=== PATIENT | male | born 1940 | race Caucasian/White ===

== ENCOUNTER 2024-02-02 15:46 | Outpatient (CLI) | payer MEDICARE, OTHER | END 2024-02-02 23:59 | disposition critical access hospital (66) | LOC: EMS 15:46 | DX: R42 Dizziness and giddiness (principal); R11.0 Nausea; R61 Generalized hyperhidrosis | CPT/HCPCS: A0425; A0427 ==

== ENCOUNTER 2024-02-02 16:03 | Emergency (ER) | payer MEDICARE, OTHER ==
--- NOTE | 2024-02-02 16:25 | ED Physician Documentation ---
History of Present Illness - Stated complaint Stated Complaint: NAUSEA - Chief complaint Chief Complaint: Neuro - History obtained from History obtained from: Patient - Additonal information Additional information: Patient is an 84 yo M presenting to the ED with symptoms of dizziness. Symptoms started shortly after leaning over outside while doing work and then standing up suddenly. Patient reports persistent symptoms at this time with any movment. He notes he was able to walk shortly after this occured. No LOC or truama. He denies any vomiting but does report some nausea with these symptoms. He denies this ever happening before. He notes he was feeling fine this morning. Patient denies any new medications or changing any medications recently. He denies any headaches or neck pain. PD PAST MEDICAL HISTORY - Past Medical History Past Medical History: Yes Cardiovascular: Hypertension - Past Surgical History Past Surgical History: Yes General: Other - Allergies Allergies/Adverse Reactions: Allergies Allergy/AdvReac Type Severity Reaction Status Date / Time No Known Drug Allergies Allergy Verified 02/02/24 16:09 - Social History Does the pt smoke?: No Smoking Status: Never smoker Does the pt drink ETOH?: No Does the pt have substance abuse?: No - Immunizations Immunizations are current?: Yes PD ED PE NORMAL - Vitals Vital signs reviewed: Yes - General General: Alert and oriented X 3 - HEENT HEENT: Atraumatic - Neck Neck: Supple, no meningeal sign - Cardiac Cardiac: RRR, No murmur, No rub, Strong equal pulses - Respiratory Respiratory: No respiratory distress, Clear bilaterally - Abdomen Abdomen: Normal bowel sounds, Soft - Derm Derm: Normal color - Neuro Neuro: Alert and oriented X 3, writing manager 2-12 intact, Other (Finger to nose test intact. Strength intact in upper and lower extremities. Stable gait on ambulation. Negative Romberg anastacio) Results - Vitals Vitals: Oxygen O2 Source Room air - Labs Labs: Laboratory Tests 02/02/24 02/02/24 02/02/24 16:34 16:34 16:34 WBC 7.9 RBC 4.74 Hgb 14.3 Hct 42.6 MCV 89.9 MCH 30.2 MCHC 33.6 RDW 13.0 Plt Count 133 MPV 10.2 Neut # (Auto) 6.2 Lymph # (Auto) 1.0 L [place] # (Auto) 0.7 Eos # (Auto) 0.1 Baso # (Auto) 0.0 Absolute Nucleated RBC 0.00 Nucleated RBC % 0.0 Sodium 136 Potassium 4.8 H Chloride 100 L Carbon Dioxide 28 Anion Gap 8.0 BUN 15 Creatinine 1.0 Estimated GFR (MDRD) 72 L Glucose 135 H Calcium 9.8 Total Bilirubin 1.1 H AST 15 ALT 14 Alkaline Phosphatase 66 B-Natriuretic Peptide 124 H Total Protein 7.1 Albumin 4.4 Globulin 2.7 Albumin/Globulin Ratio 1.6 Lipase 15 Ethyl Alcohol 02/02/24 16:34 WBC RBC Hgb Hct MCV MCH MCHC RDW Plt Count MPV Neut # (Auto) Lymph # (Auto) [place] # (Auto) Eos # (Auto) Baso # (Auto) Absolute Nucleated RBC Nucleated RBC % Sodium Potassium Chloride Carbon Dioxide Anion Gap BUN Creatinine Estimated GFR (MDRD) Glucose Calcium Total Bilirubin AST ALT Alkaline Phosphatase B-Natriuretic Peptide Total Protein Albumin Globulin Albumin/Globulin Ratio Lipase Ethyl Alcohol < 10.0 PD Medical Decision Making - ED course Complexity details: reviewed old records, reviewed results, re-evaluated patient ED course: Patient is an 84 year old male presenting to the ED with dizziness and lightheadeness symptoms. patient describes symptoms as lightheadedness with no hx of vertigo, symptoms started suddenly after changing from sitting to standing position. Patient's vitals are stable on arrival. However orthostatics are positive here in the ED. Normal cardiac and lung sounds with no focal neuro deficits on examination. Labs here in the ED are reassuring no significant leukocytosis or anemia that appears concerning. Lipase is within range. Senation and strength intact in upper adn lower extremities. Mild hyperkalemia on exam. Patient hiven fluids to correct this as well as to help with positive orthostatics. Discussed with patient reassuring work-up here in the ED. Discussed with patient reassuring exam and no acute findings. Patient symptoms most likely secondary to presyncopal symptoms from orthostatic hypotension. Patient's symptoms resolved here in the ED and patient is feeling significantly better patient will return to the ED with michelle or worsening symptoms. Patient agreeable with this plan. Her is agreeable with this plan. Departure - Departure Disposition: 01 Home, Self Care Clinical Impression: Nausea, Lightheadedness, Orthostatic dizziness, Dehydration, Hyperkalemia Condition: Good Instructions: ED Dehydration Comments: You were seen here in the emergency department for your lightheadedness and nausea symptoms your workup here in the emergency department showed signs of dehydration given your labs and vital signs. I gave you a liter of fluids which seemed to help your symptoms here in emergency department. Please follow-up with your PCP in 1 week for recheck of your labs and vital signs. Drink lots of fluids when you return home and return with any headaches vision changes numbness weakness dizziness nausea vomiting symptoms. Forms: PCP List Discharge Date/Time: 02/02/24 19:38
[2024-02-02 16:40] LABS: BASOPHILS % (AUTO) 0.1 %; EOSINOPHILS # (AUTO) 0.1 10^3/uL (0.0-0.7); EOSINOPHILS % (AUTO) 1.3 %; HCT - HEMATOCRIT 42.6 % (42.0-52.0); HGB - HEMOGLOBIN 14.3 g/dL (14.0-18.0); LYMPHOCYTES % (AUTO) 12.1 %; MEAN CORPUSCULAR HEMOGLOBIN 30.2 pg (27.0-31.0); MEAN CORPUSCULAR HGB CONC 33.6 g/dL (32.0-36.0); MEAN CORPUSCULAR VOLUME 89.9 fL (80.0-94.0); MEAN PLATELET VOLUME 10.2 fL (7.4-11.4); MONOCYTES # (AUTO) 0.7 10^3/uL (0.0-1.0); MONOCYTES % (AUTO) 8.2 %; NEUTROPHILS # (AUTO) 6.2 10^3/uL (1.5-6.6); NEUTROPHILS % (AUTO) 77.9 %; PLT - PLATELET COUNT 133 10^3/uL (130-450); RED BLOOD COUNT 4.74 10^6/uL (4.70-6.10); WHITE BLOOD COUNT 7.9 x10^3/uL (4.8-10.8)
[2024-02-02 16:58] LABS: ALBUMIN 4.4 g/dL (3.2-5.5); ALBUMIN/GLOBULIN RATIO 1.6 (1.0-2.2); BILIRUBIN,TOTAL 1.1 mg/dL (0.2-1.0); CALCIUM 9.8 mg/dL (8.5-10.3); POTASSIUM 4.8 mmol/L (3.5-4.5); TOTAL PROTEIN 7.1 g/dL (6.4-8.9)
[2024-02-02] MEDS: MECLIZINE 12.5 MG TABLET PO STA (17:09)
[2024-02-02] MEDS: SODIUM CHLORIDE 0.9% 1,000 ML IV STA (18:00)
--- NOTE | 2024-02-02 18:08 | XRAY Report ---
PROCEDURE: Chest 1V INDICATIONS: sob TECHNIQUE: One view of the chest was acquired. COMPARISON: None. FINDINGS: Surgical changes and devices: None. Lungs and pleura: Query a trace left pleural effusion. No right-sided pleural effusion. No pneumotho rax. Lungs are clear. Mediastinum: Mediastinal contours appear normal. Heart size is mildly enlarged. Aortic arch is ca lcified, indicating atherosclerosis. Bones and chest wall: No suspicious bony lesions. Overlying soft tissues appear unremarkable. IMPRESSION: 1.No acute cardiopulmonary process. Specifically, no radiographic evidence of pulmonary edema. 2.Query a trace left pleural effusion. 3.Mild cardiomegaly. Reviewed by: Barbara Salinas MD on 02/02/2024 5:07 PM [facility] Approved by: Barbara Salinas MD on 02/02/2024 5:07 PM AKDT Station ID: [id number]
[2024-02-02 19:42] VITALS: BP 140/62; O2SAT 98
== END 2024-02-02 19:38 | disposition home or self-care (01) ==
LOC: EDUNIT# → ED 16:03
DX: E86.0 Dehydration (principal); E87.5 Hyperkalemia; I95.1 Orthostatic hypotension
CPT/HCPCS: 36415; 71045; 80053; 83690; 83880; 85025; 93005; 96360; 96361; 99283; 99284; A9270; G0480; 82077